=== PATIENT | female | born 1975 | race Caucasian/White ===

== ENCOUNTER 2024-11-15 06:24 | Day surgery (SDC) | payer OTHER ==
[2024-11-12 13:30] VITALS: BMI 26.5
[2024-11-15] MEDS ORDERED: LACTATED RINGERS 1,000 ML IV SCH (07:19)
[2024-11-15] MEDS: LACTATED RINGERS 500 ML IV ONE (07:20)
[2024-11-15] MEDS ORDERED: PROPOFOL 10 MG/ML 20 ML VIAL IV ONE (07:30)
[2024-11-15] MEDS ORDERED: LIDOCAINE 2% (PF) 20 MG/ML 5 ML VIAL ONE (07:30)
[2024-11-15 07:37] VITALS: TEMP 97.3
[2024-11-15 07:42] LABS: Glucose,Whole Blood 97 mg/dL (70-110)
--- NOTE | 2024-11-15 08:06 | P.OP ---
Date of Procedure: 11/15/24 Preoperative Diagnosis: Gerd Left upper quadrant pain Postoperative Diagnosis: Antral gastritis Esophagitis Normal colon Procedure(s) Performed: EGD Colonoscopy Anesthesia: MAC Surgeon: Julio Ceasr Zurita Pathology: other (antrum, esophagus) Condition: stable Disposition: PACU Description of Procedure: The patient was placed on the endoscopy table in the lateral position. She received IV sedation. The gas was placed oropharynx passed in the esophagus and the stomach. Scope then placed through the pylorus. The first and second portion of the duodenum appeared normal. Th scope was then brought back into the antrum. And this appeared mildly Flaim. A biopsy was performed. Scope was then retroflexed Ayana stomach appeared normal. The GE junction was at 40 cm. There was a very small sliding hiatal hernia. The GE junction was examined. In the distal esophagus appeared minimal Flaim. A biopsy performed. The proximal esophagus appeared normal. Scope withdrawn for patient. Next digital rectal exam was performed. This revealed no abnormalities. Flexible colonoscope was then placed patient anus passed throughout the entire colon. The ileocecal valve was visualized. The cecum, ascending and transverse colon appeared normal. The descending and sigmoid colon appeared normal. The scope Cinobac rectum this appeared normal. Scope withdrawn the patient.
[2024-11-15 08:42] VITALS: BP 136/86; PULSE 60; RESP 17
== END 2024-11-15 08:58 | disposition home or self-care (01) ==
LOC: ORWHC2ENDO 06:24
PROVIDERS: ATTEND Surgery
DX: K21.00 Gastro-esophageal reflux disease with esophagitis, without bleeding (principal); K29.50 Unspecified chronic gastritis without bleeding; K31.A11 Gastric intestinal metaplasia without dysplasia, involving the antrum; E11.9 Type 2 diabetes mellitus without complications; I48.91 Unspecified atrial fibrillation; F32.A Depression, unspecified; E78.5 Hyperlipidemia, unspecified; I50.9 Heart failure, unspecified; G47.33 Obstructive sleep apnea (adult) (pediatric); Z79.01 Long term (current) use of anticoagulants; Z79.899 Other long term (current) drug therapy; Z79.85 Long-term (current) use of injectable non-insulin antidiabetic drugs; Z90.710 Acquired absence of both cervix and uterus; Z90.49 Acquired absence of other specified parts of digestive tract; Z95.0 Presence of cardiac pacemaker; Z98.890 Other specified postprocedural states; Z88.1 Allergy status to other antibiotic agents; Z88.8 Allergy status to other drugs, medicaments and biological substances
CPT/HCPCS: 88305; 45378; 43239; J2704; J2003

== ENCOUNTER → 2025-04-29 | Outpatient (CLI) | payer OTHER ==
--- NOTE | 2025-04-29 08:52 | MM ---
Reason for Exam: Clinical finding. Last mammogram was performed 2 year(s) and 1 month(s) ago. Indicated Problems: Lump or thickening of the left side for 6 Day(s). Patient History: Menarche at age 11. First Full-Term at age 18. Hysterectomy at age 33. Postmenopausal. Risk Values: Idalia 5 year model risk: 0.7%. NCI Lifetime model risk: 7.4%. Prior Study Comparison: 04/14/2020 Bilateral Screening Mammogram, [facility]. 02/01/2022 Bilateral Screening Mammogram, [facility]. 03/01/2023 Bilateral Screening Mammogram, [facility]. Tissue Density: The breasts are heterogeneously dense, which may obscure small masses. Findings: Palpable marker placed along the anterior aspect of the left breast. There is a new 3 mm oil cyst calcification in the subareolar region adjacent to the palpable marker. Asymmetric density upper outer quadrant is unchanged. No significant change from prior exams otherwise seen. Overall Assessment: Incomplete: need additional imaging evaluation, BI-RAD 0 Management: Diagnostic Breast Ultrasound of the left breast. [facility], , 04/29/2025 8:49 AM. Electronically signed and approved by: Juli Frias M.D. Radiologist
--- NOTE | 2025-04-29 09:36 | USB ---
Reason for Exam: Clinical finding. Patient History: Menarche at age 11. First Full-Term at age 18. Hysterectomy at age 33. Postmenopausal. Risk Values: Idalia 5 year model risk: 0.7%. NCI Lifetime model risk: 7.4%. Technique: Method: Targeted. Prior Study Comparison: 04/14/2020 Bilateral Screening Mammogram, [facility]. 02/01/2022 Bilateral Screening Mammogram, [facility]. 03/01/2023 Bilateral Screening Mammogram, [facility]. Findings: The axilla of the left breast and the retroareolar of the left breast were scanned. Ultrasound subareolar and periareolar left breast including scanning of the axilla. There is a 2 mm complicated cyst near the nipple which seems to correspond to the oil cyst seen on mammogram. Minimal duct ectasia is also noted. No other solid or cystic lesion or axillary adenopathy. Overall Assessment: Benign, BI-RAD 2 Management: Screening Mammogram of both breasts in 1 year. Further clinical management of any suspicious palpable area. There is a tiny benign, 3 mm oil cyst seen on imaging at the patient's palpable site. If any enlarging palpable area is detected, the patient can be rescanned. A clinical breast exam by your physician is recommended on an annual basis and results should be correlated with mammographic findings. This exam should not preclude additional follow-up of suspicious palpable abnormalities. Results were given to the patient verbally at the time of exam. [facility], , 04/29/2025 9:33 AM. Electronically signed and approved by: Juli Frias M.D. Radiologist
== END | disposition home or self-care (01) ==
LOC: RADMAMWWP 06:49
PROVIDERS: ATTEND Family Medicine
DX: R92.333 Mammographic heterogeneous density, bilateral breasts (principal); Z78.0 Asymptomatic menopausal state
CPT/HCPCS: 77062; 77066